=== PATIENT | female | born 1965 ===

== ENCOUNTER 2018-11-14 17:48 | Emergency (ER) | payer OTHER ==
[2018-11-14 17:48] VITALS: BMI 28.3
[2018-11-14] MEDS ORDERED: Ipratropium 0.02% Inhal Soln (0.5 mg/2.5 ml) UD IH STA (19:27)
[2018-11-14] MEDS ORDERED: Albuterol-Ipratrop 3 mg / 0.5 (3 ml) UD ONE (19:28)
[2018-11-14] MEDS ORDERED: Ipratropium 0.02% Inhal Soln (0.5 mg/2.5 ml) UD IH ONE (19:34)
--- NOTE | 2018-11-14 20:16 | C.PDOC ---
History Of Present Illness 53 y/o female presents to the ER complaining of flu like symptoms including fever, nasal congestion, sore throat, and body aches which have been present for the past 4 days. Patient states that she took Tylenol. Patient reports that she feels mild shortness of breath and generalized weakness. Denies having cough, CP, nausea, and vomiting. Chief Complaint (Nursing): Flu-like Symptoms History Per: Patient History/Exam Limitations: no limitations Onset/Duration Of Symptoms: Days Current Symptoms Are (Timing): Still Present Severity: Moderate Past Medical History Reviewed: Historical Data, Nursing Documentation, Vital Signs Vital Signs: Last Vital Signs Temp 98.8 F 11/14/18 18:03 Pulse 84 11/14/18 18:03 Resp 20 11/14/18 18:03 BP 114/72 11/14/18 18:03 Pulse Ox 97 11/14/18 18:03 - Medical History PMH: Hypercholesterolemia Denies: HIV, Chronic Kidney Disease Other Surgeries: Hx of surgeries - [facility] Procedures DILATION OF COMMON BILE DUCT, ENDO (11/30/17) DILATION OF PANCREATIC DUCT WITH INTRALUMINAL DEVICE, ENDO (11/30/17) FLUOROSCOPY OF GALLBL, BILE, PANCR DUCT USING OTH CONTRAST (11/30/17) RESECTION OF GALLBLADDER, PERCUTANEOUS ENDOSCOPIC APPROACH (11/30/17) Family History: States: No Known Family Hx - Social History Hx Alcohol Use: No Hx Substance Use: No Review Of Systems Constitutional: Positive for: Fever, Weakness, Malaise. Negative for: Chills Eyes: Negative for: Redness ENT: Positive for: Nose Congestion, Throat Pain. Negative for: Mouth Swelling Cardiovascular: Negative for: Chest Pain Respiratory: Positive for: Shortness of Breath. Negative for: Cough Gastrointestinal: Negative for: Nausea, Vomiting, Diarrhea Genitourinary: Negative for: Dysuria, Hematuria Musculoskeletal: Negative for: Back Pain Skin: Negative for: Rash Neurological: Negative for: Weakness, Numbness, Dizziness Physical Exam - Physical Exam Appears: Other (ill,sniffling) Skin: Normal Color, Warm, Dry Head: Atraumatic, Normacephalic Eye(s): bilateral: Normal Inspection Ear(s): Left: Normal, Right: Other (serous fluid in TM, no erythema, no discharge) Nose: Other (rhinorrhea bilateral nares) Oral Mucosa: Moist Throat: No Erythema, No Exudate, Other (airway patent) Neck: Supple Lymphatic: Other (no cervical node enlargement) Chest: Symmetrical Cardiovascular: Rhythm Regular Respiratory: No Rales, No Rhonchi, Wheezing (mild right sided wheezing), Other (normal inspiratory effort, speaking in full sentences) Gastrointestinal/Abdominal: Normal Exam, Soft, No Tenderness, No Guarding, No Rebound Neurological/Psych: Oriented x3, Normal Speech ED Course And Treatment O2 Sat by Pulse Oximetry: 97 (RA) Pulse Ox Interpretation: Normal Medical Decision Making Medical Decision Making: Plan: --CXR --Flu Swab --Atrovent IH --Motrin PO --Prednisone PO CXR shows possible RLL infiltrate Disposition - Disposition Referrals: 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 - Scribe Statement The provider has reviewed the documentation as recorded by the Hussainibe Sherrell Portillo Provider Attestation All medical record entries made by the Scribe were at my direction and personally dictated by me. I have reviewed the chart and agree that the record accurately reflects my personal performance of the history, physical exam, medical decision making, and the department course for this patient. I have also personally directed, reviewed, and agree with the discharge instructions and disposition.
[2018-11-14 21:00] VITALS: BP 110/75; PULSE 86; RESP 110; TEMP 98.9
[2018-11-15 05:35] VITALS: O2SAT 97
--- NOTE | 2018-11-15 09:27 | RAD ---
Date of service: 11/14/2018 HISTORY: Pneumonia COMPARISON: No prior. TECHNIQUE: Chest PA and lateral FINDINGS: LINES AND TUBES: None. LUNG AND PLEURA: The lungs are well inflated and clear. No pleural effusion or pneumothorax. HEART AND MEDIASTINUM: The heart is not enlarged. No aortic atherosclerotic calcifications present. The hilar and mediastinal contours are within normal limits. SKELETAL STRUCTURES: The bony structures are within normal limits for the patient's age. VISUALIZED UPPER ABDOMEN: Normal. OTHER FINDINGS: None. IMPRESSION: No active pulmonary disease.
== END 2018-11-14 20:59 | disposition home or self-care (01) ==
LOC: C.ER 17:48
DX: J18.9 Pneumonia, unspecified organism (principal)